=== PATIENT | female | born 1955 | race Caucasian/White ===

== ENCOUNTER 2018-04-27 22:51 | Emergency (ER) | payer MEDICAID, OTHER ==
[~2018-04-27] VITALS: Ht 165.1 cm; Wt 68.0 kg
[~2018-04-27 22:51] MED LIST: GLIP-115; LIS5T PO; LISI-646; METF-372
[2018-04-27 23:10] VITALS: BP 112/72
[2018-04-27 23:29] LABS: Basophils # (auto) 0 uL; Basophils % (auto) 0.5 % (0.0-2.0); Eosinophils # (auto) 0 uL; Eosinophils % (auto) 0.6 % (0.0-7.0); Hematocrit 35.4 % (36.0-46.0); Hemoglobin 11.9 g/dL (12.2-16.2); Lymphocytes # (auto) 1.4 uL; Lymphocytes % (auto) 21.4 % (10.0-50.0); Mean Corpuscular Hgb Conc. 33.8 g/dL (32.0-36.0); Mean Corpuscular Volume 79.9 fL (80.0-100.0); Monocytes # (auto) 0.4 uL; Monocytes % (auto) 6.4 % (0.0-12.0); Neutrophils # (auto) 4.7 uL; Neutrophils % (auto) 71.1 % (37.0-80.0); Platelet Count (auto) 296 10^3/uL (140-450); Red Blood Cells 4.43 10^6/uL (4.0-5.20); Red Cell Distribution Width 15.2 % (11.8-14.3); White Blood Cell 6.6 10^3/uL (4.4-10.8)
[2018-04-27 23:44] LABS: Alanine Aminotransferase 26 U/L (13-56); Albumin 3.2 g/dL (3.4-5.0); Anion Gap 7 (5-15); Aspartate Aminotransferase 22 U/L (15-37); BUN/Creatinine Ratio 15.5; Blood Urea Nitrogen 20 mg/dL (7-18); Calcium 8.7 mg/dL (8.5-10.1); Carbon Dioxide 29 mmol/L (21-32); Chloride 104 mmol/L (98-107); GFR African American 54 mL/min; GFR Non-African American 45 mL/min; Glucose 165 mg/dL (74-106); Magnesium 1.5 mg/dL (1.6-2.6); Potassium 4.3 mmol/L (3.5-5.1); Sodium 140 mmol/L (136-145)
[2018-04-27 23:49] LABS: Alkaline Phosphatase 119 U/L (45-117); Bilirubin, Total 0.2 mg/dL (0.2-1.0); Total Protein 7.3 g/dL (6.4-8.2)
== END 2018-04-28 04:21 | disposition left against medical advice (07) ==
LOC: ER 22:51 → MERGE 22:51 → EDBD 22:51 → ER 04-28 04:21
DX: R53.1 Weakness (principal); Z53.21 Procedure and treatment not carried out due to patient leaving prior to being seen by health care provider
CPT/HCPCS: 36415; 80053; 83735; 84484; 85025